=== PATIENT | male | born 1950 | race Asian ===

== ENCOUNTER 2017-06-03 15:38 | Emergency (ER) | payer OTHER ==
[2017-06-03] MEDS: FAMOTIDINE 20 MG TAB PO (18:10)
[2017-06-03] MEDS: ACETAMINOPHEN 325 MG TAB PO (18:11)
== END 2017-06-03 18:49 | disposition home or self-care (01) ==
LOC: FTE 15:38
DX: M54.6 Pain in thoracic spine (principal); Z85.118 Personal history of other malignant neoplasm of bronchus and lung
CPT/HCPCS: 71046; 93005; 99284-25